=== PATIENT | female | born 1955 | race Caucasian/White ===

== ENCOUNTER 2019-04-30 19:47 | Emergency (ER) | payer MEDICARE, OTHER ==
[~2019-04-30] VITALS: Ht 152.4 cm; Wt 72.6 kg
[2019-04-30] MEDS ORDERED: COZAAR 25 MG TA25 M1 PO (20:25)
[2019-04-30] MEDS ORDERED: CRESTOR20 MG PO (20:26)
[2019-04-30] MEDS ORDERED: SYNTHROID50 MCG PO (20:26)
[2019-04-30] MEDS ORDERED: JANUMET XR 1001 EACH PO (20:27)
[2019-04-30] MEDS ORDERED: TRAMADOL 50 MG50 MG PO (20:28)
[2019-04-30] MEDS ORDERED: CELEBREX 200 M200 M1 PO (20:28)
[2019-04-30] MEDS ORDERED: ZANTAC 150MG T150 MG PO (20:28)
[2019-04-30] MEDS ORDERED: DIFLUCAN200 MG NASAL (20:30)
[2019-04-30] MEDS ORDERED: METAXALL800 MG PO (20:31)
[2019-04-30 21:04] LABS: URINE BILIRUBIN NEGATIVE (Negative); URINE BLOOD TRACE (Negative); URINE CLARITY CLEAR; URINE COLOR YELLOW; URINE GLUCOSE-RANDOM NEGATIVE (Negative); URINE KETONES NEGATIVE (Negative); URINE LEUKOCYTES-REFLEX TRACE (Negative); URINE NITRITE-REFLEX NEGATIVE (Negative); URINE PROTEIN NEGATIVE (Negative); URINE SPECIFIC GRAVITY 1.015 (1.005-1.030); URINE UROBILINOGEN 0.2 E.U./dl (0.2-1.0)
[2019-04-30 21:15] LABS: BACTERIA-REFLEX 1-9 Few /HPF (None Seen); CASTS None Seen /LPF (None Seen); CRYSTALS None Seen /LPF (None Seen); MUCUS None Seen strn/LPF (None Seen); SQUAMOUS 0-3 Few /LPF (0-3); URINE RBC 0-2 Rare /HPF (0-2); URINE WBC-REFLEX 6-15 Few /HPF (0-5)
[2019-04-30 21:16] LABS: ABSOLUTE EOSINOPHILS 0.2 thou/uL (0.0-0.7); ABSOLUTE LYMPHOCYTES 1.9 thou/uL (0.8-5.3); ABSOLUTE MONOCYTES 0.7 thou/uL (0.0-1.2); ABSOLUTE NEUTROPHILS 6.5 thou/uL (1.6-8.1); BASOPHILS 0.4 %; EOSINOPHILS 2.5 %; HEMATOCRIT 41.3 % (37.0-47.0); HEMOGLOBIN 13.6 gm/dL (12.0-15.0); LYMPHOCYTES 20.2 %; MCH 28.4 pg (26.0-34.0); MCV 86.3 fL (80.0-100.0); MONOCYTES 7.3 %; MPV 8.5 fl. (7.2-11.1); NUCLEATED RBCS 0 /100WBC; PLATELET COUNT* 279 thou/uL (150-400); POLYS 69.6 %; RBC 4.79 mil/uL (4.20-5.00); RDW-CV 13.2 % (10.5-14.5); WBC 9.4 thou/uL (4.0-11.0)
[2019-04-30 21:20] LABS: CALCIUM 9.1 mg/dL (8.5-10.1); CREATININE 0.9 mg/dL (0.6-1.3); POTASSIUM 3.8 mmol/L (3.5-5.1)
[2019-04-30 21:23] LABS: APTT 26.9 Seconds (25.0-31.3); PROTIME 10.5 Seconds (9.20-11.50)
[2019-04-30 21:24] LABS: ALBUMIN 4.3 g/dL (3.4-5.0); TOTAL BILIRUBIN 0.4 mg/dL (<0.1-1.0); TOTAL PROTEIN 7.7 g/dL (6.4-8.2)
[2019-04-30] MEDS ORDERED: PERCOCET PO (21:30)
[2019-04-30] MEDS ORDERED: KEFLEX500 M1 PO (21:30)
[2019-04-30 22:10] VITALS: BP 172/98
== END 2019-04-30 22:40 | disposition home or self-care (01) ==
LOC: M.ERS 19:47
PROVIDERS: Family Medicine
DX: S52.572A Other intraarticular fracture of lower end of left radius, initial encounter for closed fracture (principal); S02.2XXA Fracture of nasal bones, initial encounter for closed fracture; S52.612A Displaced fracture of left ulna styloid process, initial encounter for closed fracture; E78.5 Hyperlipidemia, unspecified; K21.9 Gastro-esophageal reflux disease without esophagitis; M79.7 Fibromyalgia; M19.90 Unspecified osteoarthritis, unspecified site; G43.909 Migraine, unspecified, not intractable, without status migrainosus; Z88.1 Allergy status to other antibiotic agents; Z88.2 Allergy status to sulfonamides; Z87.442 Personal history of urinary calculi; W01.0XXA Fall on same level from slipping, tripping and stumbling without subsequent striking against object, initial encounter; Y92.89 Other specified places as the place of occurrence of the external cause; Y93.89 Activity, other specified; Y99.8 Other external cause status

== ENCOUNTER → 2019-05-05 | Outpatient (CLI) | payer MEDICARE, OTHER ==
[~2019-05-05] MED LIST: CELEBREX 200 M200 M1 PO; COZAAR 25 MG TA25 M1 PO; CRESTOR20 MG PO; DIFLUCAN200 MG NASAL; JANUMET XR 1001 EACH PO; KEFLEX500 M1 PO; METAXALL800 MG PO; PERCOCET PO; SYNTHROID50 MCG PO; TRAMADOL 50 MG50 MG PO; ZANTAC 150MG T150 MG PO
[2019-05-05 10:22] LABS: POTASSIUM 3.9 mmol/L (3.5-5.1)
== END ==
LOC: M.LAB 05:14
PROVIDERS: Student in an Organized Health Care Education/Training Program
DX: E11.9 Type 2 diabetes mellitus without complications (principal); E87.6 Hypokalemia